=== PATIENT | female | born 1980 ===

== ENCOUNTER 2018-01-04 10:04 | Outpatient (CLI) | payer OTHER | END 2018-01-04 15:38 | disposition home or self-care (01) | LOC: RAD 10:04 | DX: M25.542 Pain in joints of left hand (principal) ==

== ENCOUNTER 2018-01-05 11:07 | Outpatient (CLI) | payer OTHER | END 2018-01-05 17:00 | disposition home or self-care (01) | LOC: SONOGRAMA 11:07 | DX: M25.532 Pain in left wrist (principal) ==

== ENCOUNTER → 2020-11-18 | Outpatient (CLI) | payer OTHER | END | disposition home or self-care (01) | LOC: MAMO-SONO 09:28 | DX: R92.2 Inconclusive mammogram (principal); N64.59 Other signs and symptoms in breast ==

== ENCOUNTER 2022-05-15 11:38 | Outpatient (CLI) | payer OTHER | END 2022-05-15 12:00 | disposition home or self-care (01) | LOC: MRI 11:38 | DX: M25.562 Pain in left knee (principal) | CPT/HCPCS: 73721 ==

== ENCOUNTER 2024-10-19 06:49 | Outpatient (CLI) | payer OTHER | END 2024-10-19 07:00 | disposition home or self-care (01) | LOC: TOM 06:49 | DX: R19.00 Intra-abdominal and pelvic swelling, mass and lump, unspecified site (principal) ==

== ENCOUNTER 2025-01-24 06:23 | Outpatient (CLI) | payer OTHER | END 2025-01-24 14:09 | disposition home or self-care (01) | LOC: MRI 06:23 | PROVIDERS: ATTEND Radiology Diagnostic Radiology | DX: M25.512 Pain in left shoulder (principal) | CPT/HCPCS: 73221 ==